=== PATIENT | female | born 1975 | race Caucasian/White ===

== ENCOUNTER 2020-11-22 09:53 | Emergency (ER) | payer MEDICAID ==
--- NOTE | 2020-11-22 12:18 | EDM.PDOC ---
ED HPI GENERAL MEDICAL PROBLEM - General Chief Complaint: Back Pain or Injury Stated Complaint: BACK INJURY Time Seen by Provider: 11/22/20 10:55 Source of Information: Reports: Patient, RN Notes Reviewed History Limitations: Reports: No Limitations - History of Present Illness INITIAL COMMENTS - FREE TEXT/NARRATIVE: Patient is a 45-year-old female presenting to the emergency department with complaints of mid in the left low back pain as well as left mid back pain. She reports that this morning around 6 AM she fell and landed on her buttocks. She hit the left side of her low back on the edge of a stair. She reports that she has had problems with low back pain and that she had "cracked SI joint "for 5 years which is a 12 weeks ago she was told was healing. She had a rhizotomy done 12 weeks ago to help with chronic low back pain. Patient does have a history of Marfan syndrome and stills disease. Reports that she admit intermittently gets fevers, so it is difficult for her to discern if she is having a urinary tract infection or not. She is had no burning with urination. Denies any nausea or vomiting. Lower Back Pain Score (Numeric/FACES): 3 - Related Data Allergies Allergy/AdvReac Type Severity Reaction Status Date / Time codeine Allergy Severe Anaphylactic Verified 11/22/20 10:05 Shock morphine Allergy Severe Anaphylactic Verified 11/22/20 10:05 Shock Penicillins Allergy Severe Anaphylactic Verified 11/22/20 10:05 Shock Home Meds: Home Meds Acetaminophen/HYDROcodone [[place] 325-7.5 MG] 1 tab PO Q4H PRN 11/22/20 [History] Dextroamphetamine/Amphetamine [Adderall 10 mg Tablet] 1 tab PO DAILY 11/22/20 [History] Etanercept [Enbrel] 50 mg SQ WEEKLY 11/22/20 [History] Insulin Aspart [NovoLOG] 0 unit SQ TID 11/22/20 [History] Pediatric Nutrition, Iron, Lf [Pediasure] 0 ml PO DAILY 11/22/20 [History] predniSONE [Prednisone] 1 tab PO DAILY 11/22/20 [History] Past Medical History HEENT History: Reports: Other (See Below) Other HEENT History: Facial CA 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 History: Reports: Musculoskeletal History: Reports: Fracture, Other (See Below) Other Musculoskeletal History: "Stils Disease" Neurological History: Reports: CVA Oncologic (Cancer) History: Reports: Other (See Below) Other Oncologic History: Facial CA - Past Surgical History HEENT Surgical History: Reports: Oral Surgery, Other (See Below) Other HEENT Surgeries/Procedures: Jaw Surgery Neurological Surgical History: Reports: Lumbar Spine Musculoskeletal Surgical History: Reports: Other (See Below) Other Musculoskeletal Surgeries/Procedures:: Hand Surgeries Social & Family History - Tobacco Use Tobacco Use Status *Q: Former Tobacco User Used Tobacco, but Quit: Yes Month/Year Tobacco Last Used: 05/1999 - Caffeine Use Caffeine Use: Reports: Tea - Recreational Drug Use Recreational Drug Use: No ED ROS GENERAL - Review of Systems Review Of Systems: See Below Constitutional: Reports: No Symptoms HEENT: Reports: No Symptoms Respiratory: Reports: No Symptoms Cardiovascular: Reports: No Symptoms Endocrine: Reports: No Symptoms GI/Abdominal: Reports: No Symptoms : Reports: No Symptoms Musculoskeletal: Reports: Back Pain Skin: Reports: No Symptoms Neurological: Reports: No Symptoms Psychiatric: Reports: No Symptoms Hematologic/Lymphatic: Reports: No Symptoms Immunologic: Reports: No Symptoms ED EXAM,LOWER BACK PAIN/INJURY - Physical Exam Exam: See Below Exam Limited By: No Limitations General Appearance: Alert, WD/WN, No Apparent Distress Respiratory/Chest: No Respiratory Distress, Lungs Clear, Normal Breath Sounds, No Accessory Muscle Use, Chest Non-Tender Cardiovascular: Normal Peripheral Pulses, Regular Rate, Rhythm, No Edema, No Gallop, No JVD, No Murmur, No Rub Back Exam: Normal Inspection, Full Range of Motion, Other (Superficial left mid back tenderness. Tenderness to palpation L3-S2 and left lateral.) Extremities: Normal Inspection, Normal Range of Motion, Non-Tender, No Pedal Edema, Normal Capillary Refill Neurological: Alert, Normal Mood/Affect, Normal Dorsiflexion, CN II-XII Intact, Normal Plantar Flexion, Normal Gait, Normal Reflexes, No Motor/Sensory Deficits, Oriented x 3 Psychiatric: Normal Affect, Normal Mood Skin Exam: Warm, Dry, Intact, Normal Color, No Rash Course - Vital Signs Last Recorded V/S: Last Vital Signs Temp 97.2 F 11/22/20 10:02 Pulse 76 11/22/20 10:02 Resp 16 11/22/20 10:02 BP 128/47 L 07/02/21 10:02 Pulse Ox 100 11/22/20 10:02 - Orders/Labs/Meds Labs: Laboratory Tests 11/22/20 Range/Units 11:11 Urine Color Yellow (Yellow) Urine Appearance Clear (Clear) Urine pH 7.0 (5.0-8.0) Ur Specific [place] 1.025 (1.005-1.030) Urine Protein Negative (Negative) Urine Glucose (UA) Negative (Negative) Urine Ketones Negative (Negative) Urine Occult Blood Negative (Negative) Urine Nitrite Negative (Negative) Urine Bilirubin Negative (Negative) Urine Urobilinogen 0.2 (0.2-1.0) Ur Leukocyte Esterase Negative (Negative) Urine RBC 0-5 (0-5) /hpf Urine WBC 0-5 (0-5) /hpf Ur Squamous Epith Cells 5-10 H (0-5) /hpf Urine Bacteria Moderate H (FEW) /hpf Urine Mucus Many H (FEW) /hpf - Re-Assessments/Exams Free Text/Narrative Re-Assessment/Exam: She is a 45-year-old female presenting to the emergency department with complaints of low back pain and left mid back pain. Reports that she fell this morning, landing directly on her buttocks. She has a history of back problems and wants to ensure that there is nothing broken. Exam reveals tenderness from L3-S2 as well as left SI joint tenderness. I have ordered x-rays of the lumbar spine, sacrum, and SI joints. Also order urinalysis. 11/22/20 12:53 Urinalysis shows no evidence of infection. X-rays revealed no acute abnormalities. Patient has pain medications at home that she may use as needed. Discharge instructions as documented. Departure - Departure Time of Disposition: 12:56 Disposition: Home, Self-Care 01 Condition: Good Clinical Impression: Low back pain Qualifiers: Chronicity: acute Back pain laterality: left Sciatica presence: without sciatica Qualified Code(s): M54.5 - Low back pain - Discharge Information *PRESCRIPTION DRUG MONITORING PROGRAM REVIEWED*: No *COPY OF PRESCRIPTION DRUG MONITORING REPORT IN PATIENT CRISTOPHER: No Instructions: Acute Back Pain, Adult Referrals: PCP,Not In Area [Primary Care Provider] - Forms: ED Department Discharge Additional Instructions: You were seen in the emergency department today for low back pain after falling. X-rays were completed of your lumbar spine, sacrum, and sacroiliac joints as well as a urinalysis. Results of this were found to be normal. There is no fractures. You not have a urinary tract infection. Recommend using ibuprofen routinely for discomfort. For pain not relieved by this, you may use the pain medication that you have at home as prescribed. Recommend intermittent icing. If symptoms fail to improve over the course the next week, recommend follow-up in the clinic. Return to ER as needed. Sepsis Event Note (ED) - Evaluation Sepsis Screening Result: No Definite Risk - Focused Exam Vital Signs: Vital Signs Temp Pulse Resp BP Pulse Ox 11/22/20 10:02 97.2 F 76 16 128/47 L 100
--- NOTE | 2020-11-22 12:22 | CR ---
Lumbar spine: AP, lateral and coned-down lateral views were obtained of the lumbosacral junction. Comparison: No prior lumbar spine studies available. Findings: Spondylolisthesis is noted at L4-5 measuring approximately 6 mm. This is most likely due to degenerative apophyseal change. Mild disc space narrowing is also noted at L4-5. Other disc spaces are maintained. Vertebral body heights are maintained. Pedicles as well as transverse and spinous processes appear to be intact. Sacroiliac joints is narrowed on the right side. Impression: 1. 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 2. Spondylolisthesis and disc space narrowing at L4-5 most likely due to degenerative apophyseal change. Diagnostic code #3
--- NOTE | 2020-11-22 12:24 | CR ---
Sacroiliac joints: 3 views of the sacroiliac joints were obtained. Joint space narrowing is seen within the right sacroiliac joint. Joint space within left sacroiliac joint is maintained. No acute fracture or other bony abnormality is appreciated. Impression: 1. Joint space narrowing within the right sacroiliac joint. 2. No acute abnormality is seen. Diagnostic code #2
--- NOTE | 2020-11-22 12:25 | CR ---
Sacrum and coccyx: 3 views of the sacrum and coccyx were obtained. Comparison: No previous sacrum and coccyx studies available. Joint space narrowing is seen within the right sacroiliac joint. Joint spaces within both hips are fairly well preserved. Degenerative change is seen at L4-5 as described on lumbar spine study. Sacrum and coccyx show no acute fracture or subluxation. Impression: 1. Degenerative change as noted above described on prior studies. 2. Nothing acute is seen on sacrum and coccyx study. Diagnostic code #2
== END 2020-11-22 13:05 | disposition home or self-care (01) ==
LOC: JD.ED 09:53
DX: M54.5 Low back pain (principal); I25.2 Old myocardial infarction; Z88.6 Allergy status to analgesic agent; Z88.0 Allergy status to penicillin; Z88.5 Allergy status to narcotic agent; Z79.4 Long term (current) use of insulin
CPT/HCPCS: 72100; 72100-26; 72202; 72202-26; 72220; 72220-26; 81001; 99283-25

== ENCOUNTER 2020-12-21 01:16 | Emergency (ER) | payer MEDICAID, OTHER ==
--- NOTE | 2020-12-21 01:33 | EDM.PDOC ---
ED HPI GENERAL MEDICAL PROBLEM - General Chief Complaint: General Stated Complaint: poss blood clot Time Seen by Provider: 12/21/20 01:27 - History of Present Illness INITIAL COMMENTS - FREE TEXT/NARRATIVE: 45-year-old female presents the emergency room with pain in her right thigh. Short time ago the patient developed some crampy sensation in her right thigh and then she thought she felt something release itself and there and then she developed some intermittent chest discomfort. This seems to have gotten somewhat better but her thigh is still somewhat uncomfortable. The patient has had problems with blood clots in the past and is wondering if this could be what it is. - Related Data Allergies Allergy/AdvReac Type Severity Reaction Status Date / Time aspirin Allergy Severe Cannot Verified 12/21/20 01:30 Remember codeine Allergy Severe Anaphylactic Verified 11/22/20 10:05 Shock morphine Allergy Severe Anaphylactic Verified 11/22/20 10:05 Shock Penicillins Allergy Severe Anaphylactic Verified 11/22/20 10:05 Shock sulfate ion Allergy Severe Cannot Verified 12/21/20 01:30 Remember Home Meds: Home Meds Acetaminophen/HYDROcodone [[place] 325-7.5 MG] 1 tab PO Q4H PRN 11/22/20 [History] Dextroamphetamine/Amphetamine [Adderall 10 mg Tablet] 1 tab PO DAILY 11/22/20 [History] Etanercept [Enbrel] 50 mg SQ WEEKLY 11/22/20 [History] Insulin Aspart [NovoLOG] 0 unit SQ TID 11/22/20 [History] Pediatric Nutrition, Iron, Lf [Pediasure] 0 ml PO DAILY 11/22/20 [History] predniSONE [Prednisone] 1 tab PO DAILY 11/22/20 [History] Past Medical History HEENT History: Reports: Other (See Below) Other HEENT History: Facial CA 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: Musculoskeletal History: Reports: Fracture, Other (See Below) Other Musculoskeletal History: "Stils Disease" Neurological History: Reports: CVA Oncologic (Cancer) History: Reports: Other (See Below) Other Oncologic History: Facial CA - Past Surgical History HEENT Surgical History: Reports: Oral Surgery, Other (See Below) Other HEENT Surgeries/Procedures: Jaw Surgery Neurological Surgical History: Reports: Lumbar Spine Musculoskeletal Surgical History: Reports: Other (See Below) Other Musculoskeletal Surgeries/Procedures:: Hand Surgeries Social & Family History - Caffeine Use Caffeine Use: Reports: Tea ED ROS GENERAL - Review of Systems Review Of Systems: See Below Constitutional: Reports: No Symptoms HEENT: Reports: No Symptoms Respiratory: Reports: Pleuritic Chest Pain. Denies: Shortness of Breath Cardiovascular: Reports: No Symptoms Endocrine: Reports: No Symptoms GI/Abdominal: Reports: No Symptoms : Reports: No Symptoms Neurological: Reports: No Symptoms ED EXAM, GENERAL - Physical Exam Exam: See Below Exam Limited By: No Limitations General Appearance: Alert, No Apparent Distress Head: Atraumatic, Normocephalic Neck: Normal Inspection, Supple, Non-Tender, Full Range of Motion. No: Lymphadenopathy (L), Lymphadenopathy (R) Respiratory/Chest: No Respiratory Distress, Lungs Clear, Normal Breath Sounds Cardiovascular: Regular Rate, Rhythm, No Edema, No Murmur GI/Abdominal: Normal Bowel Sounds, Soft, Non-Tender Back Exam: Normal Inspection. No: CVA Tenderness (L), CVA Tenderness (R) Extremities: Other (Palpation of the medial right thigh is a little tender no redness warmth or swelling noted no lower leg tenderness.) Course - Vital Signs Last Recorded V/S: Last Vital Signs Temp 36.1 C 12/21/20 01:32 Pulse 77 12/21/20 01:32 Resp 16 12/21/20 01:32 BP 126/69 12/21/20 01:32 Pulse Ox 99 12/21/20 01:32 - Orders/Labs/Meds Labs: Laboratory Tests 12/21/20 12/21/20 12/21/20 Range/Units 01:50 01:50 01:50 WBC 5.94 (3.98-10.04) K/mm3 RBC 4.29 (3.98-5.22) M/mm3 Hgb 13.0 (11.2-15.7) gm/dl Hct 39.5 (34.1-44.9) % MCV 92.1 (79.4-94.8) fl MCH 30.3 (25.6-32.2) pg MCHC 32.9 (32.2-35.5) g/dl RDW Std Deviation 41.4 (36.4-46.3) fL Plt Count 224 (182-369) K/mm3 MPV 8.9 L (9.4-12.3) fl Neut % (Auto) 49.0 (34.0-71.1) % Lymph % (Auto) 42.6 (19.3-51.7) % [place] % (Auto) 6.2 (4.7-12.5) % Eos % (Auto) 1.7 (0.7-5.8) Baso % (Auto) 0.3 (0.1-1.2) % Neut # (Auto) 2.91 (1.56-6.13) K/mm3 Lymph # (Auto) 2.53 (1.18-3.74) K/mm3 [place] # (Auto) 0.37 H (0.24-0.36) K/mm3 Eos # (Auto) 0.10 (0.04-0.36) K/mm3 Baso # (Auto) 0.02 (0.01-0.08) K/mm3 PT 11.6 (9.7-12.0) SECONDS INR 1.09 APTT 25.9 (21.7-31.4) SECONDS D-Dimer, Quantitative 0.38 (0.19-0.50) mg/L Sodium 141 (136-145) mEq/L Potassium 3.7 (3.5-5.1) mEq/L Chloride 105 (98-107) mEq/L Carbon Dioxide 28 (21-32) mEq/L Anion Gap 11.7 (5-15) BUN 14 (7-18) mg/dL Creatinine 0.8 (0.55-1.02) mg/dL Est Cr Clr Drug Dosing TNP Estimated GFR (MDRD) > 60 (>60) mL/min BUN/Creatinine Ratio 17.5 (14-18) Glucose 103 H (70-99) mg/dL Calcium 8.7 (8.5-10.1) mg/dL Total Bilirubin 0.3 (0.2-1.0) mg/dL AST 15 (15-37) U/L ALT 11 L (14-59) U/L Alkaline Phosphatase 63 (46-116) U/L Total Protein 7.2 (6.4-8.2) g/dl Albumin 4.0 (3.4-5.0) g/dl Globulin 3.2 gm/dL Albumin/Globulin Ratio 1.3 (1-2) - Re-Assessments/Exams Free Text/Narrative Re-Assessment/Exam: 12/21/20 03:39 Labs are nondiagnostic D-dimer is negative. I discussed the findings with the patient. And she will treat it like a pulled muscle for now. I recommended that she follow-up with your regular healthcare provider for recheck on Wednesday if not better. Return to the emergency room sooner if getting worse Departure - Departure Time of Disposition: 03:39 Disposition: Home, Self-Care 01 Clinical Impression: Right thigh pain - Discharge Information Referrals: PCP,Not In Area [Primary Care Provider] - Forms: ED Department Discharge Additional Instructions: Return to the emergency room with any questions problems or worsening symptoms. Recheck in the clinic on Wednesday if not better. Tylenol as needed for discomfort. Try using warm moist heat to the area. Sepsis Event Note (ED) - Focused Exam Vital Signs: Vital Signs Temp Pulse Resp BP Pulse Ox 12/21/20 01:32 36.1 C 77 16 126/69 99
== END 2020-12-21 03:46 | disposition home or self-care (01) ==
LOC: JD.ED 01:16
DX: M79.651 Pain in right thigh (principal); I25.2 Old myocardial infarction; Z88.8 Allergy status to other drugs, medicaments and biological substances; Z88.5 Allergy status to narcotic agent; Z88.0 Allergy status to penicillin; Z79.899 Other long term (current) drug therapy
CPT/HCPCS: 36415; 80053; 85025; 85379; 85610; 85730; 99283